=== PATIENT | male | born 1970 | race Caucasian/White ===

== ENCOUNTER 2022-03-13 16:10 | Observation (INO) | payer OTHER ==
[2022-03-13 17:07] LABS: BASO % 0.3 % (0-2.0); EOS % 1.3 % (0-4.5); HEMATOCRIT 45.3 % (35.4-49); HEMOGLOBIN 15.1 GM/dL (11.7-16.9); MCH 27.4 pg (25.7-33.7); MCHC 33.2 g/dl (32.0-35.9); MEAN CELL VOLUME 82.6 fl (80-96); MEAN PLT VOLUME 8.9 fl (7.5-11.1); MONO % 14.6 % (3.8-10.2); NEUT % 63.8 % (42.8-82.8); PLATELET COUNT 247 10^3/uL (134-434); RBC 5.49 M/mm3 (4.00-5.60); RDW 13.4 % (11.9-15.9)
[2022-03-13 17:12] LABS: INR 1.34 (0.83-1.09); PROTHROMBIN TIME (PATIENT) 15.5 SEC (9.7-13.0)
[2022-03-13 17:15] LABS: ACTIVATED PTT 31.2 SECONDS (25.2-36.5)
[2022-03-13 17:19] LABS: CALCIUM 8.7 mg/dL (8.5-10.1)
[2022-03-13 17:20] LABS: ALBUMIN 4.2 g/dl (3.4-5.0); BLOOD UREA NITROGEN 32.1 mg/dL (7-18); MAGNESIUM 2.5 mg/dL (1.8-2.4)
[2022-03-13 17:23] LABS: CREATININE 0.9 mg/dL (0.55-1.3); PHOSPHOROUS 4.9 mg/dL (2.5-4.9)
[2022-03-13 17:25] LABS: BILIRUBIN,TOTAL 1.1 mg/dL (0.2-1); TOT PROT 8.3 g/dl (6.4-8.2)
[2022-03-13 17:28] LABS: N-TERMINAL BNP 319.1 pg/ml (5-125)
[2022-03-14 07:33] LABS: CALCIUM 8.5 mg/dL (8.5-10.1)
[2022-03-14 07:34] LABS: BLOOD UREA NITROGEN 30.8 mg/dL (7-18); MAGNESIUM 2.5 mg/dL (1.8-2.4)
[2022-03-14 07:37] LABS: CREATININE 0.7 mg/dL (0.55-1.3)
[2022-03-14] MEDS ORDERED: PATIENT'S OWN MEDICATION (NON-FORMULARY) (Empagliflozin [Jardiance] 10 MG Tablet) PO SCH (10:15)
[2022-03-14] MEDS ORDERED: FUROSEMIDE 40 MG TABLET (FP) PO SCH (10:15)
[2022-03-14] MEDS ORDERED: ERGOCALCIFEROL (VIT D2) 50,000 UNIT (1.25 MG) CAPSULE PO SCH (10:30)
[2022-03-14] MEDS ORDERED: CARVEDILOL 12.5 MG TABLET (FP) ONE (11:33)
[2022-03-14] MEDS ORDERED: APIXABAN 5 MG TABLET ONE (11:33)
[2022-03-14] MEDS ORDERED: ASPIRIN 81 MG CHEWABLE TABLETS ONE (11:33)
[2022-03-14] MEDS ORDERED: SPIRONOLACTONE 25 MG TABLET ONE (11:34)
[2022-03-14] MEDS ORDERED: FUROSEMIDE 40 MG/4 ML INJECTABLE VIAL IVPUSH ONE (11:37)
[2022-03-14] MEDS: SPIRONOLACTONE 25 MG TABLET PO SCH (11:39)
[2022-03-14] MEDS: ASPIRIN 81 MG CHEWABLE TABLETS PO SCH (11:39)
[2022-03-14] MEDS: APIXABAN 5 MG TABLET PO SCH ×2 (11:40→22:22)
[2022-03-14] MEDS: CARVEDILOL 12.5 MG TABLET (FP) PO SCH ×2 (11:40→22:22)
[2022-03-14] MEDS: SACUBITRIL/VALSARTAN 24 MG-26 MG TABLET PO SCH ×2 (11:59→22:22)
[2022-03-14] MEDS ORDERED: ATORVASTATIN CA 40 MG TABLET (FP) PO SCH (22:00)
[2022-03-15 00:27] VITALS: BMI 43.6
[2022-03-15 07:21] LABS: BASO % 0.6 % (0-2.0); EOS % 1.9 % (0-4.5); HEMATOCRIT 40.4 % (35.4-49); HEMOGLOBIN 13.5 GM/dL (11.7-16.9); LYMPH % 27.8 % (8-40); MCH 27.5 pg (25.7-33.7); MCHC 33.3 g/dl (32.0-35.9); MEAN CELL VOLUME 82.7 fl (80-96); MEAN PLT VOLUME 9.6 fl (7.5-11.1); NEUT % 54.7 % (42.8-82.8); PLATELET COUNT 230 10^3/uL (134-434); RBC 4.89 M/mm3 (4.00-5.60); RDW 13.1 % (11.9-15.9); WHITE BLOOD COUNT 6.4 K/mm3 (4.0-10.0)
[2022-03-15 07:45] LABS: BLOOD UREA NITROGEN 28.1 mg/dL (7-18); CALCIUM 8.1 mg/dL (8.5-10.1)
[2022-03-15 07:48] LABS: CREATININE 0.7 mg/dL (0.55-1.3)
[2022-03-15] MEDS: ASPIRIN 81 MG CHEWABLE TABLETS PO SCH (09:12)
[2022-03-15] MEDS: APIXABAN 5 MG TABLET PO SCH (09:12)
[2022-03-15] MEDS: SACUBITRIL/VALSARTAN 24 MG-26 MG TABLET PO SCH (09:12)
[2022-03-15] MEDS: SPIRONOLACTONE 25 MG TABLET PO SCH (09:12)
[2022-03-15] MEDS: CARVEDILOL 12.5 MG TABLET (FP) PO SCH (09:12)
[2022-03-15 15:04] VITALS: BP 115/52; PULSE 65; TEMP 98.7
== END 2022-03-15 15:01 | disposition home or self-care (01) ==
LOC: JER 16:10 → JERBED 19:09 → J4W 03-14 20:55
PROVIDERS: ADMIT Specialist; ATTEND Specialist
PROC: 3E033GC Introduction of Other Therapeutic Substance into Peripheral Vein, Percutaneous Approach (ICD-10-PCS; principal; 2022-03-13)
DX: I47.2 Ventricular tachycardia (principal); I11.0 Hypertensive heart disease with heart failure; G47.33 Obstructive sleep apnea (adult) (pediatric); Z95.810 Presence of automatic (implantable) cardiac defibrillator; E87.1 Hypo-osmolality and hyponatremia; Z68.41 Body mass index [BMI] 40.0-44.9, adult; E66.9 Obesity, unspecified; Z91.010 Allergy to peanuts; Z88.0 Allergy status to penicillin
CPT/HCPCS: 36415; 71045-TC-FY; 80048; 80053; 83735; 83880; 84100; 84439; 84443; 84484; 85025; 85610; 85730; 86850; 86900; 86901; 93005; 93010; 99284-25; C9803-CS; G0378; U0003; U0005